=== PATIENT | female | born 1940 ===

== ENCOUNTER 2022-04-01 06:15 | Day surgery (SDC) | payer OTHER ==
[~2022-04-01] VITALS: Ht 152.4 cm; Wt 59.0 kg
[~2022-04-01 06:15] MED LIST: AMLO PO; CHILDREN'S ASPI81 MG PO; ENALAPRIL MALEA10 MG PO; GABAPENT PO; METFOR PO; SIMVASTA PO; VITAMIN D3 PO; VITAMIN D310 MCG/1 M; ZOLOFT50 MG PO; [UNRECOGNIZED DRUG - OTHER] PO
[2022-04-01] MEDS ORDERED: RECTICARE30 GM TOP (08:23)
[2022-04-01] MEDS ORDERED: ULTRACET PO (08:23)
== END 2022-04-01 11:20 | disposition home or self-care (01) ==
LOC: CIR.AMB 06:15
PROVIDERS: ATTEND Surgery
DX: K62.1 Rectal polyp (principal); Z20.822 Contact with and (suspected) exposure to COVID-19; I10 Essential (primary) hypertension; Z99.89 Dependence on other enabling machines and devices; G47.33 Obstructive sleep apnea (adult) (pediatric)